=== PATIENT | male | born 1980 | race Two or more races ===

== ENCOUNTER 2018-03-15 13:25 | Emergency (ER) | payer OTHER ==
[~2018-03-15] VITALS: Ht 172.7 cm; Wt 114.9 kg
[2018-03-15 13:33] VITALS: BP 144/86
== END 2018-03-15 15:01 | disposition home or self-care (01) ==
LOC: ED 14:45
DX: M54.2 Cervicalgia (principal); M54.5 Low back pain
CPT/HCPCS: 72050; 72110; 99283

== ENCOUNTER 2018-03-25 13:52 | Emergency (ER) | payer OTHER ==
[~2018-03-25] VITALS: Ht 172.7 cm; Wt 115.0 kg
[2018-03-25] MEDS ORDERED: ONDANSETRON ODT 4 MG PO ONE (14:30)
[2018-03-25] MEDS ORDERED: KETOROLAC 30 MG/1 ML IM ONE (14:30)
--- NOTE | 2018-03-25 15:15 | NUR ---
Pt to room from lobby.
[2018-03-25] MEDS ORDERED: KETOROLAC 30 MG/1 ML ONE (16:25)
[2018-03-25] MEDS ORDERED: ONDANSETRON ODT 4 MG ONE (16:25)
--- NOTE | 2018-03-25 16:41 | NUR ---
TO CT PER EMEKA
--- NOTE | 2018-03-25 17:44 | NUR ---
PT REPORT TO JOSUE LUONG RN. PT CARE TRANSFERRED.
[2018-03-25 17:51] VITALS: BP 134/87
== END 2018-03-25 17:53 | disposition home or self-care (01) ==
LOC: ED 16:29
DX: S16.1XXA Strain of muscle, fascia and tendon at neck level, initial encounter (principal); G43.909 Migraine, unspecified, not intractable, without status migrainosus; V49.49XA Driver injured in collision with other motor vehicles in traffic accident, initial encounter; Y93.89 Activity, other specified; Y92.89 Other specified places as the place of occurrence of the external cause; Y99.8 Other external cause status
CPT/HCPCS: 70450; 96372; 99284; J1885; Q0162

== ENCOUNTER → 2018-04-25 | Outpatient (CLI) | payer OTHER | END | disposition home or self-care (01) | LOC: CFH 14:44 | PROVIDERS: ATTEND Nurse Practitioner Family | DX: M48.061 Spinal stenosis, lumbar region without neurogenic claudication (principal); M51.16 Intervertebral disc disorders with radiculopathy, lumbar region; M50.122 Cervical disc disorder at C5-C6 level with radiculopathy | CPT/HCPCS: 72141; 72148 ==

== ENCOUNTER → 2020-04-16 | Outpatient (CLI) | payer OTHER | END | disposition home or self-care (01) | LOC: RAD 12:58 | PROVIDERS: ATTEND Nurse Practitioner Family | DX: M51.16 Intervertebral disc disorders with radiculopathy, lumbar region (principal) | CPT/HCPCS: 72110 ==